=== PATIENT | female | born 1985 | race Caucasian/White ===

== ENCOUNTER 2023-05-27 05:59 | Outpatient (REF) | payer OTHER, SELFPAY ==
[2023-05-27 06:21] LABS: MANUAL DIFF FLAG NO
[2023-05-27 07:06] LABS: Basophils Absolute Auto 0.1 X10*3/uL (0.0-0.2); Basophils Percent Auto 0.7 % (0-2); Eosinophils Absolute Auto 0.2 X10*3/uL (0.0-0.4); Eosinophils Percent Auto 3.3 % (0-4); Hematocrit 37.9 % (37.0-47.0); Hemoglobin 12.5 g/dl (12.0-16.0); Imm Gran Abs Auto 0.01 X10*3/uL (0.00-0.03); Imm Gran Pct Auto 0.1 % (0.0-0.4); Lymphocytes Absolute Auto 2.2 X10*3/uL (1.2-4.9); Lymphocytes Percent Auto 33.1 % (20-40); Mean Corpuscular Hemoglobin 31.4 pg (27.0-33.0); Mean Corpuscular Volume 95.2 fL (80.0-98.0); Mean Platelet Volume 12.5 fL (9.4-12.3); Monocytes Absolute Auto 0.5 X10*3/uL (0.1-1.2); Monocytes Percent Auto 7.2 % (2-11); Neutrophils Absolute Auto 3.7 x10*3/uL (2.0-8.3); Neutrophils Percent Auto 55.6 % (45-73); Platelet Count 240 X10*3/uL (160-400); Red Blood Count 3.98 X10*6/uL (4.20-5.50); Red Cell Distribution Width 13.1 % (11.0-16.0); White Blood Count 6.7 X10*3/uL (4.8-10.8)
[2023-05-27 07:10] LABS: Estimated Average Glucose 94 mg/dL; Hemoglobin A1c % 4.9 %
[2023-05-27 07:39] LABS: Alanine Aminotransferase 12 U/L (0-31); Albumin Level 4.2 g/dL (3.5-5.0); Alkaline Phosphatase 46 U/L (39-117); Amylase 40 U/L (28-100); Anion Gap 14 (12-20); Aspartate Amino Transferase 16 U/L (5-31); Bilirubin Total 0.8 mg/dL (0.0-1.0); Blood Urea Nitrogen 12 mg/dL (9-16); C Reactive Protein 0.54 mg/dL (< or = 0.50); Calcium 9.2 mg/dL (8.4-10.2); Carbon Dioxide 22 mmol/L (22-29); Chloride 109 mmol/L (96-108); Cholesterol 182 mg/dL; Estimated Glomerular Filt Rate > 60; Glucose Random 92 mg/dL (60-115); HDL Cholesterol 48 mg/dL; Iron 111 mcg/dL (30-160); LDL Cholesterol Calculated 114 mg/dl; Lipase 24 U/L (8-78); Percent Iron Saturation 49 % (15-50); Potassium 4.1 mmol/L (3.3-5.1); Sodium 141 mmol/L (135-145); Total Iron Binding Capacity 228 mcg/dL (228-428); Total Protein 6.9 g/dL (6.5-8.0); Triglycerides 102 mg/dL; Unsaturated Iron Binding 117 ug/dL
[2023-05-27 07:59] LABS: Ferritin 82 ng/mL (10-122); Insulin 15 uU/mL (2-29); TSH reflex Free T4 1.65 uIU/mL (0.32-4.0); Thyroid Stimulating Hormone 1.65 uIU/mL (0.32-4.0); Vitamin B12 > 2000 pg/mL (200-900); Vitamin D 25-OH Total 52.7 ng/mL (>30)
[2023-05-28 04:33] LABS: DHEA Sulfate 103 mcg/dL (19-237); Follicle Stimulating Hormone 1.9 mIU/mL
[2023-05-28 05:18] LABS: Triiodothyronine T3 Free 2.9 pg/mL (2.3-4.2)
[2023-05-28 09:54] LABS: Thyroglobulin Antibodies <1 IU/mL (< or = 1); Thyroid Peroxidase Antibodies 3 IU/mL (<9)
[2023-05-30 15:43] LABS: Thyroid Stimulating Immunoglob <89 % baseline (<140)
[2023-05-30 20:33] LABS: Thyrotropin Receptor Antibody <1.00 IU/L (<=2.00)
[2023-05-31 12:57] LABS: Triiodothyronine T3 Reverse 15 ng/dL (8-25)
[2023-05-31 13:49] LABS: Lipoprotein A <10 nmol/L (<75)
[2023-05-31 23:04] LABS: Estradiol Ultra Sensitive 82 pg/mL
[2023-06-01 04:19] LABS: Dihydrotestosterone 10 ng/dL (< OR = 20)
[2023-06-01 14:34] LABS: Progesterone 5.9 ng/mL
[2023-06-02 16:58] LABS: Testosterone, Free 1.2 pg/mL (0.1-6.4); Testosterone, Total 20 ng/dL (2-45)
[2023-06-20 15:59] LABS: Apolipoprotein A1 150 mg/dL (>=125); Apolipoprotein B 86 mg/dL
== END 2023-05-27 06:00 | disposition home or self-care (01) ==
LOC: HO.LAB 05:59
PROVIDERS: PCP Physician Assistant; Visit Provider Nurse Practitioner Adult Health
DX: E11.9 Type 2 diabetes mellitus without complications (principal); E03.9 Hypothyroidism, unspecified; E55.9 Vitamin D deficiency, unspecified; D64.9 Anemia, unspecified; E28.2 Polycystic ovarian syndrome; E78.5 Hyperlipidemia, unspecified; K76.0 Fatty (change of) liver, not elsewhere classified; R53.83 Other fatigue; N95.9 Unspecified menopausal and perimenopausal disorder; E53.9 Vitamin B deficiency, unspecified
CPT/HCPCS: 36415; 80053; 80061; 82150; 82172; 82306; 82607; 82627; 82642; 82670; 82728; 83001; 83002; 83036; 83520; 83525; 83540; 83690; 83695; 84144; 84402; 84403; 84443; 84445; 84481; 84482; 85025; 86140; 86376; 86800

== ENCOUNTER → 2024-06-03 09:56 | Outpatient (BNVA) | payer OTHER, SELFPAY | PROVIDERS: PCP Physician Assistant; Visit Provider Physician Assistant Medical | DX: Z13.89 Encounter for screening for other disorder (principal) | CPT/HCPCS: 84450; 84460; 84702; 85025; 86803; 87389; 99203 ==